=== PATIENT | male | born 1965 | race Caucasian/White ===

== ENCOUNTER 2016-11-13 11:00 | Observation (INO) | payer BC ==
[~2016-11-13] VITALS: Ht 185.4 cm; Wt 156.6 kg
[2016-11-13] MEDS ORDERED: ACETAMINOPHEN650 MG PO (13:41)
[2016-11-13] MEDS ORDERED: PROZAC20 M3 PO (13:42)
[2016-11-13] MEDS ORDERED: ASPIR 8181 M1 PO (13:42)
[2016-11-13] MEDS ORDERED: HYDROCHLOROTH12.5 M3 PO (13:42)
[2016-11-13] MEDS ORDERED: OMEPRAZOLE40 M2 PO (13:42)
[2016-11-13] MEDS ORDERED: PRINIVIL10 M1 PO (13:43)
[2016-11-13] MEDS ORDERED: MULTIVITAMIN PO (13:45)
[2016-11-14 05:01] LABS: BASO % 0.2 % (0-2); EOS % 2.2 % (0-7); EOSINOPHIL ABSOLUTE COUNT 0.2 tho/cmm (0.0-0.7); HCT-HEMATOCRIT 43.6 % (36.0-53.5); HGB-HEMOGLOBIN 14.9 gm/dl (13.5-17.0); IMMATURE GRANULOCYTES ABSOLUTE 0.02 tho/cmm (0-0.03); IMMATURE GRANULOCYTES PERCENT 0.2 % (0-0.3); LYMPH % 23.7 % (20-45); LYMPH ABSOLUTE COUNT 2.3 tho/cmm (0.8-4.5); MCH (MEAN CORPUSCULAR HGB) 32.6 pg (28.0-32.0); MCHC MEAN CORPUSCULAR HGB CONC 34.2 % (32.0-36.0); MCV (MEAN CELL VOLUME) 95.4 fl (82.0-96.0); MEAN PLATELET VOLUME 10.3 cmc (9.4-12.4); MONO % 7.3 % (0-12); MONOCYTE ABSOLUTE COUNT 0.7 tho/cmm (0.0-1.2); NEUTROPHIL ABSOLUTE COUNT 6.5 tho/cmm (1.6-8.0); NEUTROPHIL-AUTOMATED 6.5 tho/cmm (1.6-8.0); NEUTROPHILS % 66.4 % (40-80); PLATELET COUNT 203 tho/cmm (150-450); RED BLOOD COUNT 4.57 mil/cmm (4.40-5.70); RED CELL DISTRIBUTION WIDTH 13.2 % (12.4-16.4); WHITE BLOOD COUNT 9.8 tho/cmm (4.0-10.0)
[2016-11-14 05:20] LABS: ANION GAP 11 mmol/L (0-20); BLOOD UREA NITROGEN 11 mg/dl (6-24); CALCIUM 8.5 mg/dl (8.5-10.5); CARBON DIOXIDE-VENOUS 29 mmol/L (22-32); CHLORIDE 104 mmol/l (96-110); CHOLESTEROL 214 mg/dl (120-200); CREATININE 0.76 mg/dl (0.60-1.30); GLUCOSE 91 mg/dL (70-110); HDL CHOLESTEROL 38 mg/dl (40-60); LDL CHOLESTEROL 144 mg/dl (0-99); POTASSIUM 3.7 mmol/L (3.7-5.1); SODIUM 140 mmol/L (135-145); TRIGLYCERIDES 161 mg/dl (<149); VLDL 32 mg/dl (0-30); eGFR VALUE FOR BLACK >90 mL/Min
[2016-11-14] MEDS ORDERED: LEVAQUIN750 M1 PO (15:55)
[2016-11-14] MEDS ORDERED: TYLENOL325 M2 PO (16:18)
== END 2016-11-14 16:30 ==
LOC: CAR1 11:00
PROVIDERS: Internal Medicine; Nurse Practitioner Acute Care; ADMIT Internal Medicine Cardiovascular Disease
DX: R07.89 Other chest pain (principal); R19.7 Diarrhea, unspecified; I10 Essential (primary) hypertension; K21.9 Gastro-esophageal reflux disease without esophagitis; F17.210 Nicotine dependence, cigarettes, uncomplicated; F32.9 Major depressive disorder, single episode, unspecified; E66.9 Obesity, unspecified; Z68.42 Body mass index [BMI] 45.0-49.9, adult; Z79.82 Long term (current) use of aspirin; Z79.899 Other long term (current) drug therapy; Z88.5 Allergy status to narcotic agent
CPT/HCPCS: A9500; C8929; J2405; J2785